=== PATIENT | female | born 1990 | race Caucasian/White ===

== ENCOUNTER 2023-03-13 01:13 | Emergency (ER) | payer MEDICAID, SELFPAY ==
[2023-03-13 01:20] VITALS: BP 129/90; PULSE 65; RESP 16; TEMP 36.6; O2SAT 97; BMI 31.9
--- NOTE | 2023-03-13 01:31 | ED_ITS ---
HPI - General Adult General Date Seen: 03/13/23 Chief complaint: Dental/Oral/Mouth Injury/Pain Stated complaint: Gum Infection thinks its spreading Time Seen by Provider: 03/13/23 01:23 Source: patient Mode of arrival: ambulatory Limitations: no limitations History of Present Illness HPI narrative: Patient is a 33-year-old woman who presents for recheck of a gum infection. She had gum graft surgery for receding gum lines a couple of weeks ago, she says she did well for the 1st week but over the past 2 days had developed more pain at the surgical site as well as some puffiness in her face. She was started on clindamycin by her oral surgeon yesterday and she has taken 2 doses. She comes into the ER tonight because she has also developed some pain under her jaw. She says she did not 1 a put it off because she had an infection in her leg once that got into her blood stream. She has not had any fevers or chills, no difficulty swallowing, no significant swelling in her mouth. Related Data Allergies Allergy/AdvReac Type Severity Reaction Status Date / Time amoxicillin Allergy Verified 03/13/23 01:24 acetaminophen [From Percocet] AdvReac Verified 03/13/23 01:24 codeine AdvReac Verified 03/13/23 01:24 hydrocodone [From Vicodin] AdvReac Verified 03/13/23 01:24 oxycodone [From Percocet] AdvReac Verified 03/13/23 01:24 Review of Systems Status of ROS: Reports: 6 or more systems reviewed and unremarkable except as noted in History and below Exam Narrative: Exam Narrative: Vital signs reviewed. She is afebrile, nontoxic in appearance. Breathing easily. Eyes: Pupils are equal reactive, conjunctivae are normal. Extraocular movements are full. ENT: She has some inflammatory changes along the gumline on the upper gum bilaterally. There is no significant edema and no evidence of abscess. The remainder of the oral tissues are normal. Throat is normal. There is faint puffiness noted in her cheeks and underneath her eyes but there is no erythema or warmth, no tenderness. Floor of the mouth is normal. Neck: Supple, no adenopathy palpable, diffuse mild tenderness along the jaw line. No masses, no stridor. No erythema or warmth. Skin: Warm and dry, well perfused. Normal. Const: Vital Signs, click to edit/add: Vital Signs - 24 hr 03/13/23 01:20 Temperature 97.9 F Pulse Rate [Left P ulse Oximeter] 65 Respiratory Rate 16 Blood Pressure [Ri ght Upper Arm] 129/90 H Pulse Oximetry 97 Oxygen Delivery Me thod Room Air Course Course Hospital Course: At this time, aside from the changes along the gumline I do not find anything on exam to suggest a spreading cellulitis, Reji's angina, abscess, or other findings needing further evaluation or treatment right now. I would suggest that she give the clindamycin a day or so to begin helping. It seems as if she is essentially unchanged compared how she was when she saw the oral surgeon earlier today, aside from the new pain along the jaw line. Discussed however that with less than 24 hours of antibiotics I do not think the oral antibiotics have had a fair trial. If she is not improving after 24-48 hours on the clindamycin, would recommend discussing further with her oral surgeon. If at any time she is worsening, develops redness or warmth on the face, fevers, increasing swelling etcetera, return to the emergency department for re- evaluation. Vital Signs Vital signs: Initial Vital Signs Temperature 97.9 F 03/13/23 01:20 Temperature Source Temporal Artery Scan 03/13/23 01:20 Pulse Rate 65 03/13/23 01:20 Respiratory Rate 16 03/13/23 01:20 Blood Pressure 129/90 H 03/13/23 01:20 Blood Pressure Mean 103 03/13/23 01:20 Blood Pressure Position Sitting 03/13/23 01:20 Pulse Oximetry 97 03/13/23 01:20 Oxygen Delivery Method Room Air 03/13/23 01:20 Vital Signs Temperature 97.9 F 03/13/23 01:20 Pulse Rate 65 03/13/23 01:20 Respiratory Rate 16 03/13/23 01:20 Blood Pressure 129/90 H 03/13/23 01:20 Pulse Oximetry 97 03/13/23 01:20 Oxygen Delivery Method Room Air 03/13/23 01:20 Temperature 97.9 F 03/13/23 01:20 Pulse Rate 65 03/13/23 01:20 Respiratory Rate 16 03/13/23 01:20 Blood Pressure 129/90 H 03/13/23 01:20 Pulse Oximetry 97 07/25/23 01:20 Oxygen Delivery Method Room Air 03/13/23 01:20 Discharge Plan Discharge Clinical Impression: Disease of gingiva due to infection Patient Disposition: Home w/ Parent or Adult Condition: Stable Instructions: Surgical Site Infections (ED) Additional Instructions: Continue your clindamycin. If you do not feel you are improving over the next 24-48 hours, discuss further with your oral surgeon. If at any point you feel you are worsening, developed redness in your face, fevers, significantly worsened swelling, return to the emergency department. Stand Alone Forms: [facility] Info Instructions
[2023-03-13 02:05] VITALS: BP 121/74; PULSE 74; RESP 16; TEMP 36.6; O2SAT 97
[2023-03-13 02:06] VITALS: BP 121/74; PULSE 74; RESP 16; TEMP 36.6
== END 2023-03-13 02:25 | disposition home or self-care (01) ==
LOC: ED 01:42
PROVIDERS: Emergency Provider Emergency Medicine
DX: R68.84 Jaw pain (principal)
CPT/HCPCS: 99282; 99283